=== PATIENT | female | born 1960 | race Caucasian/White ===

== ENCOUNTER → 2019-10-27 | Outpatient (CLI) | payer OTHER | LOC: HYPER 14:24 | DX: E11.621 Type 2 diabetes mellitus with foot ulcer (principal); L97.512 Non-pressure chronic ulcer of other part of right foot with fat layer exposed; L97.522 Non-pressure chronic ulcer of other part of left foot with fat layer exposed; S22.020D Wedge compression fracture of second thoracic vertebra, subsequent encounter for fracture with routine healing; J44.9 Chronic obstructive pulmonary disease, unspecified; M62.59 Muscle wasting and atrophy, not elsewhere classified, multiple sites; L84 Corns and callosities; R13.12 Dysphagia, oropharyngeal phase; F20.89 Other schizophrenia; F50.00 Anorexia nervosa, unspecified; G40.89 Other seizures; F41.9 Anxiety disorder, unspecified; F32.9 Major depressive disorder, single episode, unspecified; F17.290 Nicotine dependence, other tobacco product, uncomplicated; Z79.82 Long term (current) use of aspirin; Z79.4 Long term (current) use of insulin; Z89.411 Acquired absence of right great toe; X58.XXXD Exposure to other specified factors, subsequent encounter ==

== ENCOUNTER → 2019-11-14 | Outpatient (CLI) | payer OTHER | LOC: HYPER 09:18 | DX: E11.621 Type 2 diabetes mellitus with foot ulcer (principal); L97.522 Non-pressure chronic ulcer of other part of left foot with fat layer exposed; L97.512 Non-pressure chronic ulcer of other part of right foot with fat layer exposed; S22.020D Wedge compression fracture of second thoracic vertebra, subsequent encounter for fracture with routine healing; L84 Corns and callosities; M62.59 Muscle wasting and atrophy, not elsewhere classified, multiple sites; G40.89 Other seizures; J44.9 Chronic obstructive pulmonary disease, unspecified; R13.12 Dysphagia, oropharyngeal phase; E78.5 Hyperlipidemia, unspecified; I10 Essential (primary) hypertension; F20.89 Other schizophrenia; F50.00 Anorexia nervosa, unspecified; F41.9 Anxiety disorder, unspecified; F32.9 Major depressive disorder, single episode, unspecified; F17.200 Nicotine dependence, unspecified, uncomplicated; Z86.14 Personal history of Methicillin resistant Staphylococcus aureus infection; Z79.4 Long term (current) use of insulin; Z79.82 Long term (current) use of aspirin; Z89.411 Acquired absence of right great toe; X58.XXXD Exposure to other specified factors, subsequent encounter ==

== ENCOUNTER → 2019-11-28 | Outpatient (CLI) | payer OTHER | LOC: HYPER 09:00 | DX: E11.621 Type 2 diabetes mellitus with foot ulcer (principal); L97.522 Non-pressure chronic ulcer of other part of left foot with fat layer exposed; L97.512 Non-pressure chronic ulcer of other part of right foot with fat layer exposed; S22.020D Wedge compression fracture of second thoracic vertebra, subsequent encounter for fracture with routine healing; L84 Corns and callosities; M62.59 Muscle wasting and atrophy, not elsewhere classified, multiple sites; R13.12 Dysphagia, oropharyngeal phase; G40.89 Other seizures; J44.9 Chronic obstructive pulmonary disease, unspecified; J45.909 Unspecified asthma, uncomplicated; E78.5 Hyperlipidemia, unspecified; I10 Essential (primary) hypertension; F50.00 Anorexia nervosa, unspecified; F32.9 Major depressive disorder, single episode, unspecified; F20.89 Other schizophrenia; F41.9 Anxiety disorder, unspecified; Z79.4 Long term (current) use of insulin; Z79.82 Long term (current) use of aspirin; Z89.421 Acquired absence of other right toe(s); X58.XXXD Exposure to other specified factors, subsequent encounter ==